=== PATIENT | female | born 1950 | race Caucasian/White ===

== ENCOUNTER 2016-08-02 18:44 | Inpatient (IN) | payer MEDICARE ==
[~2016-08-02] VITALS: Ht 157.5 cm; Wt 68.7 kg
--- NOTE | ~2016-08-02 | OR ---
PATIENT'S NAME: MATTY MARY [facility] AGE: 65 Y [address] ROOM: [address] [address] LOCATION: GPCU ADMIT DATE: 08/02/2016 OR/Procedure Report DISCHARGE DATE: FAMILY PHYSICIAN: Manny Caceres MD ATTENDING PHYSICIAN: Nav Tellez SURGEON: Parth Guadalupe MD [employer] ARCHITECT: Brennen Hagan PA-C. DATE OF PROCEDURE: 08/03/2016 PREOPERATIVE DIAGNOSIS: Perforated viscus with evidence of bowel obstruction. POSTOPERATIVE DIAGNOSIS: Perforated small bowel secondary to mesh erosion and bowel obstruction. PROCEDURE PERFORMED: 1. Exploratory laparotomy. 2. Enterolysis. 3. Small bowel resection with removal of infected mesh. 4. Appendectomy. ESTIMATED BLOOD LOSS: 150 mL. COMPLICATIONS: None. INDICATIONS: The patient is a 65-year-old female who presented with abdominal pain and evidence of bowel obstruction. She had a CT scan that revealed evidence of perforation, but also evidence of a bowel obstruction. She did not have free intraperitoneal air, but with worsening abdominal pain, we discussed laparotomy with this patient, the risks, benefits, and alternatives, and possible findings. Risks which included bleeding, infection, missed injury, injury to other viscera, potential ostomy formation. She understood the risks and elected to proceed. PROCEDURE IN DETAIL: The patient was taken to the operating room. She was placed supine. She was given IV sedation, subsequently intubated. Her abdomen was prepped with ChloraPrep and sterilely draped. A vertical midline incision was created inferior to the umbilicus. This was carried down through subcutaneous tissues using electrocautery. The linea alba was incised. Peritoneum was grasped, elevated and the abdominal cavity was entered. The incision was then opened along its entirety and Dipesh wound protector was then placed in the abdomen. There was fibrinous exudate on the bowel. The bowel was very distended consistent with the bowel obstruction. We were able to mobilize the small bowel without much difficulty. In the left lower quadrant, there was a loop of bowel. There appeared to be small bowel mesentery involvement with this severe inflammatory change. There was a firm PATIENT'S NAME: MATTY MARY [facility] AGE: 65 Y [address] ROOM: [facility] [place] [place], [place] [address] LOCATION: GPCU ADMIT DATE: 08/02/2016 OR/Procedure Report DISCHARGE DATE: FAMILY PHYSICIAN: Manny Caceres MD ATTENDING PHYSICIAN: Nav Tellez palpable area present. There was appeared to be necrotic tissue and a small amount of feculent appearing material was present. It was very difficult to tell what portion of the bowel this was, but again we felt there was small bowel involvement. By CT, it appears there could be colonic involvement. There were very poor planes. This area again appeared necrotic. We were able to slowly dissect the tissues and ultimately ended up identifying an area of a large amount of feculent material. This was a hole within the bowel that was created due to an inguinal hernia mesh erosion on the left. This appeared as though there was a plug. We tried to control the feculent matter with clamps. Again, this appeared to be small bowel. Ultimately, we were able to mobilize this loop of small bowel. This was also our area of obstruction as the bowel was somewhat torsed on itself and again with foreign body within the lumen due to the erosion of the mesh plug. A portion of the mesh plug was free of the surrounding tissues, however, some was very adherent to the pubis. We were able to dissect this and felt as though the majority of the mesh was removed using electrocautery. This was passed off as specimen. At this point in time, the bowel was resected proximal and distal to this necrotic area with the perforation and the mesentery between this was divided with the LigaSure device. Each ends of the bowel were stapled with a AYESHA stapler. The 2 ends of the bowel were placed in a [id number] fashion. Distal to our perforation, we had very decompressed bowel proximal to this. This was easily dilated. Once this portion of the bowel was resected, it was passed off as specimen. The 2 ends of the bowel were then placed in [id number] fashion. Enterotomies were created. AYESHA stapler was inserted and fired creating a common lumen. The enterotomy was closed with TA stapler. The anastomosis was palpated. There appeared to be good common lumen. It was leak tested and there was no evidence of leak. The operative field was further inspected. It was copiously irrigated. The small bowel mesentery was closed with interrupted 3-0 silk suture with the amount of inflammatory tissue present and concerns for difficulty in removing the appendix later. An appendectomy was also performed. The LigaSure was used to divide the mesoappendix. The appendix was then divided between clamps. This was then secured with 2-0 silk suture. This stump imbricated with 3-0 silk pursestring suture. The abdominal cavity again was irrigated with large volumes of fluid and was suctioned from the abdominal cavity. The left internal ring was again examined. We did not perform any further procedures in this area. The overlying mesh was not visible or palpable. A 15-Turkmen round drain was placed into the pelvis and brought out through a separate stab incision in the left abdominal wall. Copious amounts of irrigation again were used. The midline fascia was then reapproximated with 0 PDS suture. The subcutaneous tissues were copiously irrigated and the skin edges were reapproximated with brigitte. Sponge, needle and instrument counts were reported as correct. The patient was then extubated and sent to recovery in good condition. PATIENT'S NAME: MATTY MARY [facility] AGE: 65 Y [address] ROOM: [place] [address] [facility] AD[facility] DATE: 08/02/2016 OR/Procedure Report DISCHARGE DATE: FAMILY PHYSICIAN: Manny Caceres MD ATTENDING PHYSICIAN: Nav Tellez MD NANCY AMARO/modl /[id number] d: 08/04/16510 t: 08/05/16 0620, OPERATIVE SUMMARY
--- NOTE | ~2016-08-02 | HP ---
PATIENT'S NAME: MATTY [facility] AGE: 65 Y [address] ROOM: [facility] [place], [place] [address] LOCATION: GPCU ADMIT DATE: 08/02/2016 History & Physical DISCHARGE DATE: FAMILY PHYSICIAN: PHYSICIAN, UNKNOWN ATTENDING PHYSICIAN: Nav Tellez DATE OF SERVICE: 08/02/2016 CHIEF COMPLAINT: Small bowel obstruction with suspected perforation. HISTORY OF PRESENTING ILLNESS: This is a 65-year-old white female with previous history of bipolar disorder and previous hernia repair x2, [facility] and left-sided groin pain of a couple of days duration. She states she got progressively worse over the course of the day today and was unable to keep anything down. Interestingly, she reports her symptoms began a couple of days ago while she was moving a couch. She states she was trying to push it across the carpet, but it was stuck. She felt a painful popping sensation in her left hip and thigh. Subsequently, she began to feel increasing abdominal distress and nausea until she presented here today. On her arrival, x-ray did demonstrate the presence of a small bowel obstruction. It was requested to admit her to the floor. However, CT scan had not been done initially. Later, after completion of the CT scan, it was discovered that she had evidence for bowel perforation with gas in the soft tissues of the groin and thigh. Dr. Guadalupe, general surgeon, was consulted by telephone, and it was requested that I admit her to the hospital for definitive evaluation and management. On her arrival to the floor, she complains of diffuse abdominal pain and nausea. She also complains of dry mouth. She denies fever, chills, or sweats. She denies headaches, dizziness, or lightheadedness. No significant chest pain. No significant cough or shortness of breath. She has noticed some increased swelling in her legs recently. She denies numbness, tingling, or weakness. She has not fallen recently. ALLERGIES: NO KNOWN DRUG ALLERGIES. ILLNESSES: 1. Bipolar disorder with depression. 2. Previous suicide attempt with lithium overdose. 3. Chronic kidney disease, stage 3. PATIENT'S NAME: MATTY MARY [facility] AGE: 65 Y [address] ROOM: [id number] [place], [place] [address] [facility] ADMIT DATE: 08/02/2016 History & Physical DISCHARGE DATE: FAMILY PHYSICIAN: PHYSICIAN, UNKNOWN ATTENDING PHYSICIAN: Nav Tellez CURRENT MEDICATIONS: 1. Acetaminophen 650 mg p.o. q.6 hours p.r.n. pain. 2. Iron 324 mg daily. 3. Lorazepam 0.5 mg p.o. t.i.d. p.r.n. anxiety. 4. Metoprolol-XL 25 mg p.o. q.24 hours. 5. Multivitamin daily. 6. Pamelor 75 mg p.o. daily. 7. Vitamin B12, 25 mcg p.o. daily. FAMILY HISTORY: Negative for heart disease or stroke. SOCIAL HISTORY: She is and lives independently in [place]. She has a daughter, who lives in [place] and provides some social support. She has no significant history of alcohol or tobacco use. REVIEW OF SYSTEMS: As per HPI. All other organ systems reviewed and are negative. OBJECTIVE: VITAL SIGNS: Temperature 97.6, pulse 100, respirations 16, blood pressure 109/82, weight is 69.1 kg that is down from 79 in May 2012. GENERAL: She is disheveled, mildly ill appearing, but in no acute distress. SKIN: Supple, pink, warm, dry. No obvious rashes. HEENT: Otherwise, normocephalic. Sclerae nonicteric. Pupils are equal, round, and reactive to light and accommodation. Extraocular movements appear intact. Nasal turbinates normal in appearance. Oropharynx clear. Mucous membranes are pink and moist. Dentition is in poor repair. NECK: Supple. No masses. No adenopathy. No thyromegaly. No JVD. CHEST: Chest wall is symmetrical. HEART: Regular with occasional extrasystoles. LUNGS: Diminished at the bases. No crackles or wheezes are heard. ABDOMEN: Firm, protuberant, tympanitic. Bowel sounds are absent. She is diffusely tender with guarding throughout. No masses. There is prominence at the left inguinal region, but no palpable mass. No palpable crepitus. AND RECTAL: Shows normal female external genitalia. The Merrill catheter is in place without any complicating features. EXTREMITIES: Display 1 to 2+ pitting edema. No cyanosis. NEUROLOGIC: Mentation is slowed, but there are no focal deficits. LABORATORY AND X-RAY DATA: CBC showed a white blood cell count 4.5, hemoglobin is 9.1, hematocrit 28.4, and platelets 356. PATIENT'S NAME: MATTY MARY [facility] AGE: 65 Y [address] ROOM: [place] [address] LOCATION: GPCU ADMIT DATE: 08/02/2016 History & Physical DISCHARGE DATE: FAMILY PHYSICIAN: PHYSICIAN, UNKNOWN ATTENDING PHYSICIAN: Nav Tellez Chemistries reveal BUN and creatinine 101 and 3.2, respectively; sodium and potassium 139 and 4.2; chloride and CO2 are 108 and 18; calcium is 8.5; AST and ALT 55 and 58; bilirubin is 0.4; albumin is 2.1; glucose 99. Lactate was elevated at 2.8. Procalcitonin was significantly elevated at 50.97. A C- reactive protein was abnormal at greater than 37.5. KUB x-ray shows dilated small bowel loops with air-fluid levels. CT scan of the abdomen and pelvis confirms the presence of a distal small bowel obstruction. There is evidence for sigmoid perforation and gas in the left pelvis soft tissues extending into the thigh. ASSESSMENT AND PLAN: 1. Small-bowel obstruction. We will admit to inpatient care. We will observe bowel rest and provide supportive cares and clinical monitoring. They did attempt to place an NG in the ER, and we will plan to replace that once she is on the floor. Dr. Guadalupe, General Surgery, has been consulted and will also see the patient this evening. We will await his evaluation and recommendations, but likely no surgery tonight. 2. Bowel perforation with soft tissue gas in the left groin and thigh. Supportive care and bowel rest for now. She has already received broad- spectrum antibiotic therapy. We will await cultures and follow up on those when the results are known. We will await recommendations by General Surgery. 3. Systemic inflammatory response syndrome. She is not clearly septic. We will follow the lactate serially. We will provide supportive care and broad-spectrum antibiotic therapy as above. 4. Acute kidney injury with history of chronic kidney disease, stage 3. She appears prerenal. Continue with careful IV fluid hydration therapy and monitor. 5. Anemia, iron deficiency. We will plan to resume iron supplementation when it is feasible. 6. Bipolar disorder with depression and history of suicidal attempt. Currently stable. She appears to be lucid and capable of participating in decision making. I did discuss the case with her daughter, who is her legal guardian. The patient had expressed her desire to be do-not- resuscitate. However, her daughter requested to keep her full code. We will try to review this in more detail once the daughter has arrived to discuss this [id number]. 7. Deep venous thrombosis prophylaxis. We will use heparin subcu. PATIENT'S NAME: MATTY MARY [facility] AGE: 65 Y [address] ROOM: [place] [address] [facility] ADMIT DATE: 08/02/2016 History & Physical DISCHARGE DATE: FAMILY PHYSICIAN: PHYSICIAN, UNKNOWN ATTENDING PHYSICIAN: Nav Tellez MD AJS/maría /[id number] D: [id number] T: [id number] HISTORY & PHYSICAL
--- NOTE | ~2016-08-02 | CON ---
PATIENT'S NAME: PENNY MARY [facility] AGE: 65 Y [address] ROOM: [place] [address] LOCATION: GPCU ADMIT DATE: 08/02/2016 Consultation DISCHARGE DATE: FAMILY PHYSICIAN: PHYSICIAN, UNKNOWN ATTENDING PHYSICIAN: Nav Tellez CHIEF COMPLAINT: Abdominal pain. HISTORY OF PRESENT ILLNESS: The patient is a 65-year-old female, who said on last week she began feeling ill, said she was lifting a couch, had acute onset of pain and bloating. Said she developed left groin pain not long after this. She said she felt more and more swollen. Because of this, was seen in the clinic on Monday. She thought her bloating was secondary to a change in her psychiatric medications. She was seen again in the clinic in [place] today, where she was found increasing abdominal distention. She also has been having nausea and vomiting. She had plain films of her abdomen that were performed that were concerning for bowel obstruction. Because of this, she was sent to [facility]. She was admitted by the hospitalist. Her last bowel movement was 2 days ago. Cannot recall when she last passed flatus. She has no history of bowel obstruction. She did have a hysterectomy, this was done vaginally, also has had an open as well as laparoscopic right inguinal hernia performed. She has not had any fevers or chills. She said her pain is slightly worse when she walks, currently is describing left groin pain and right-sided abdominal pain. She has never had pain similar to this in the past. CURRENT ILLNESSES: Depression. CURRENT MEDICATIONS: 1. Lorazepam. 2. Metoprolol. 3. Multivitamin. 4. Nortriptyline. PREVIOUS SURGERIES: 1. Open left inguinal hernia. 2. Open right inguinal hernia. 3. Recurrent laparoscopic right inguinal hernia. 4. Vaginal hysterectomy. 5. Tonsillectomy. SOCIAL HISTORY: She is a nonsmoker and nondrinker. PATIENT'S NAME: PENNY MARY [facility] AGE: 65 Y [address] ROOM: [place] [address] LOCATION: GPCU ADMIT DATE: 08/02/2016 Consultation DISCHARGE DATE: FAMILY PHYSICIAN: PHYSICIAN, UNKNOWN ATTENDING PHYSICIAN: Nav Tellez FAMILY HISTORY: She had a mother with breast cancer. Father with liver cancer. REVIEW OF SYSTEMS: She denies headache or vision changes. Denies chest pain. No shortness of breath. She has had obstipation and constipation as well as nausea and vomiting. Denies any hematuria. Does have some pain on urination. PHYSICAL EXAMINATION: GENERAL: Pleasant and cooperative 65-year-old female. HEENT: Head is normocephalic, atraumatic. Eyes are anicteric. NECK: Without lymphadenopathy. HEART: Regular rate and rhythm. LUNGS: Clear to auscultation bilaterally. She is slightly tachypneic. ABDOMEN: Distended. Bowel sounds are absent. There is moderate tenderness to palpation. No rebound or guarding. MUSCULOSKELETAL: On examination of her left groin, there is some tenderness to palpation. No crepitans. No fluctuance. There is no overlying erythema. No visible injury. Range of motion is intact. She does have trace lower extremity edema. IMAGING: CT scan was reviewed, which reveals possible bowel obstruction but also what reveals to be a perforation within the sigmoid colon. ASSESSMENT: 1. Perforated viscus. 2. Possible bowel obstruction. PLAN: Discussed the findings with Penny as well as her daughter. Her bowels quite dilated. She has the air present. No abscess. Her white blood cell count was normal. She is not having fevers. I discussed the options of conservative measures with antibiotics versus exploration, possible ostomy, release of bowel obstruction if needed. We discussed potential etiologies of this. We discussed long-term complications or even short-term complications of nonsurgical management. I discussed the risks, benefits, and alternatives of surgery as well. Ultimately, she would like to try conservative management. We will begin antibiotics; however, I am concerned she is going to need exploration at some point in time. We discussed delay in intervention. We also discussed potential for improvement with antibiotics alone. I really feel this likely happened more than four days ago. The volume of air is quite peculiar but she currently demonstrates no sign of necrotizing infection or evidence of overwhelming sepsis. PATIENT'S NAME: PENNY MARY [facility] AGE: 65 Y [address] ROOM: [place] [address] LOCATION: GPCU ADMIT DATE: 08/02/2016 Consultation DISCHARGE DATE: FAMILY PHYSICIAN: PHYSICIAN, AMISH ATTENDING PHYSICIAN: Nav Tellez DANIELLE J MD NANCY KATE/danyl /[id number] d: 08/03/16440 t: 08/05/16617, CONSULTATION REPORT
--- NOTE | ~2016-08-02 | ER ---
PATIENT'S NAME: MATTY MARY [facility] AGE: 65 Y [address] ROOM: [id number] [place], [place] [address] LOCATION: GPCU ADMIT DATE: 08/02/2016 ER/Outpatient Report DISCHARGE DATE: FAMILY PHYSICIAN: PHYSICIAN, UNKNOWN ATTENDING PHYSICIAN: Nav Tellez Admission date and time are documented in the medical record. I saw the patient at 1900 hours. CHIEF COMPLAINT: Abdominal pain, distention, nausea, vomiting, and back pain. HISTORY OF PRESENT ILLNESS: The patient is a 65-year-old female who was flown in [facility] from [place], [place] for evaluation. Apparently, the patient has had abdominal pain this past Monday. The pain has been getting worse. Her abdomen is becoming distended. They did a KUB that showed they thought possibly was a small bowel obstruction then transferred the patient here. Dr. Dempsey, hospitalist did accept the patient. Dr. Dempsey directed the patient to the emergency department and asked me to proceed with a CT scan of the abdomen and pelvis. The patient is awake, responsive. She is lethargic, drowsy. Apparently, her blood pressure dropped systolic to 90, she has had about 2 L of normal saline and fluids and her blood pressure systolic was 110. She had acute renal failure with a creatinine 4.0 and BUN about 100+. Her GFR was 20. NG was placed and Merrill catheter was placed in [place]. Again, on arrival, the patient's blood pressure was 113/70 with a pulse of 108, respirations 26, temperature 98.9, tympanic, and she was satting 93% on room air. She was awake and responsive. She had diffuse abdominal pain. She was distended tympanic to percussion with guarding. No real true rigidity as yet. She had some low back pain. No chest pain or shortness of breath. She had some nausea, had not vomited here, but had vomited previously. Passing just a small amount of gas really infrequently. No diarrhea. No bowel movements. No headache, eyes, ears, nose, throat, or neck pain. A little lightheaded, dizzy, but no syncope or near syncope. No fall or trauma. No joint or muscle swelling, redness, or pain. No skin eruptions or rash. She does have a history of bipolar disorder with depression and anxiety. She also has a history of tardive dyskinesia. No endocrine problems or neuro changes. HOME MEDICATIONS: See attached medication list. ALLERGIES: NONE. SOCIAL HISTORY: PATIENT'S NAME: MATTY MARY [facility] AGE: 65 Y [address] ROOM: [place] [address] LOCATION: GPCU ADMIT DATE: 08/02/2016 ER/Outpatient Report DISCHARGE DATE: FAMILY PHYSICIAN: PHYSICIAN, UNKNOWN ATTENDING PHYSICIAN: Nav Tellez Nonsmoker and nondrinker. SIGNIFICANT PAST MEDICAL HISTORY: Bipolar disorder, depression, anxiety, tardive dyskinesia, and acute renal failure. OPERATIONS: Central line placement for previous acute renal failure, vaginal hysterectomy, and bilateral inguinal herniorrhaphies. REVIEW OF SYSTEMS: All systems reviewed by me are negative with the exception of those discussed in the history of present illness. PHYSICAL EXAMINATION: VITAL SIGNS: Temperature 98.9, tympanic, pulse 108, respirations 26, blood pressure 113/70, and O2 sat on room air is 93%. HEAD: Normocephalic. EYES: Extraocular muscles intact. PERRL. EARS, NOSE, THROAT: Clear. Mucous membranes moist. NECK: No nuchal rigidity. No thyromegaly or cervical adenopathy. SPINE: Negative. LUNGS: Clear. No rales, rhonchi, or wheezes. HEART: Regular. Pulses are palpable. No chest wall or ribcage pain to palpation. ABDOMEN: Tympanic to percussion, distended, no bowel tones. Tender diffusely. Some mild guarding. No palpable masses. No organomegaly. No CVA tenderness. EXTREMITIES: Without peripheral edema, cyanosis, or deformity. NEUROVASCULAR: Intact. SKIN: Clear. No skin eruptions or rash. LABORATORY DATA: Chest x-ray showed no acute infiltrate. KUB showed distended small bowel. We will review all plain films with the radiologist. Laboratory: CMS was normal except for a low CO2 content of 18, elevated BUN of 101, elevated creatinine of 3.2, low GFR of 15, AST was 55, amylase was elevated at 133, lipase was normal at 50, CPK was elevated at 412, CK-MB was elevated at 9.4, troponin was normal less than 0.04, CRP was elevated at 37.5, free T4 and TSH were normal. Procalcitonin was 50.97. Lactate was 2.8. Blood cultures x2 drawn, results pending. Urinalysis was obtained and urine culture is pending. White count was 4500, differential of 26 segs, 44 bands, 22 lymphs, 7 monos, and 2 metamyelocytes. Urine showed negative whites, 10 to 20 reds, 2 to 5 epithelial cells, moderate bacteria, 1+ mucus, and 2 to 5 hyaline cast. Again, culture pending. CT scan of the abdomen and pelvis without IV contrast PATIENT'S NAME: MATTY MARY [facility] AGE: 65 Y [address] ROOM: [place] [address] LOCATION: GPCU ADMIT DATE: 08/02/2016 ER/Outpatient Report DISCHARGE DATE: FAMILY PHYSICIAN: PHYSICIAN, UNKNOWN ATTENDING PHYSICIAN: Nav Tellez showed small bowel obstruction at the terminal ilium. There was a possibility of a sigmoid colon perforation. There was some air dissecting along the left pelvic sidewall into the muscle and fascial planes of the left thigh. There was no intraabdominal air. There was no intraabdominal fluid or abscess collection. The patient did have numerous sigmoid colon diverticuli. EMERGENCY DEPARTMENT COURSE: I did start the patient on IV normal saline and fluids. She has got a total of 3000 mL and we will place her at 100 mL an hour. She did have an NG tube down, but it was coiled just above the stump; so, this was removed. She does have a Merrill catheter in place. I did initially discuss this patient with Dr. Tellez, hospitalist. Dr. Tellez was taken over for Dr. Dempsey who did accept this patient. We will admit the patient to PCU telemetry. I also discussed this patient with Dr. Guadalupe, General Surgeon. Dr. Guadalupe is going to see the patient here in the hospital. He did suggest we start her on Zosyn 4.5 g IV and Flagyl 500 mg IV in anticipation this most likely is a perforated diverticuli of the sigmoid colon. IMPRESSION: 1. Abdominal pain and distention with distal small bowel obstruction and possibility of a perforated midupper sigmoid colon diverticuli. There was no evidence of abscess, free fluid, or free air. There is some air dissecting along the left pelvic sidewall into the muscle and fascial planes of the proximal left thigh. 2. Acute renal failure with BUN of 101, creatinine of 3.2, and low GFR of 15. 3. Transient hypotension. 4. Leukopenia with bandemia. This most likely is related to her small-bowel obstruction, possible perforated sigmoid colon. Blood cultures x2 drawn, results pending. Need to keep in mind the possibility of sepsis in this patient. The patient's CRP was elevated at 37.50, procalcitonin was elevated at 50.97, her lactate was elevated at 2.8. 5. Anemia with a hemoglobin of 9.1 and hematocrit of 28.4. 6. History of bipolar disorder with anxiety, depression, and tardive dyskinesia. PLAN: Again, the patient was hydrated, 3 L of normal saline fluids was given. She was started on Zosyn and Flagyl IV. The patient will be admitted by Dr. Tellez to PCU telemetry for further evaluation and treatment. Dr. Guadalupe, General Surgeon, is going to see the patient. I did discuss my findings with the patient, she understands. Accumulated critical care time was 40 minutes. PATIENT'S NAME: MATTY MARY [facility] AGE: 65 Y [address] ROOM: [address] [address] [facility] AD[facility] DATE: 08/02/2016 ER/Outpatient Report DISCHARGE DATE: FAMILY PHYSICIAN: PHYSICIAN, UNKNOWN ATTENDING PHYSICIAN: Nav Tellez MD JERO REYES/modl /[id number] d: 08/03/16 0446 t: 08/03/16 1708, OUTPATIENT REPORT
--- NOTE | ~2016-08-02 | DS ---
PATIENT'S NAME: MATTY MARY [facility] AGE: 65 Y [address] ROOM: [address] [address] LOCATION: GPCU ADMIT DATE: 08/02/2016 Discharge Summary DISCHARGE DATE: 08/08/2016 FAMILY PHYSICIAN: Manny Caceres MD ATTENDING PHYSICIAN: Nav Tellez DISCHARGE SUMMARY/TRANSFER SUMMARY. TIME OF DISCHARGE: 11 p.m. PRIMARY DISCHARGE/TRANSFER DIAGNOSES: 1. Left inguinal area abscess/infection down into the musculature of the anterior left thigh, concerning for necrotizing fascitis. 2. Perforated small bowel secondary to mesh erosion and bowel obstruction, status post exploratory laparotomy and enterolysis and small bowel resection with removal of the infected mesh and also appendectomy on August 03, 2016. 3. Hypernatremia. 4. History of supraventricular tachycardia. 5. Acute blood loss anemia. 6. Acute kidney injury on chronic kidney disease. 7. Acute encephalopathy. PAST MEDICAL HISTORY: 1. Bipolar disorder with depression. 2. Previous suicide attempt with lithium overdose. 3. CKD stage 3. TRANSFER MEDICATIONS: 1. MiraLAX 17 g p.o. b.i.d. 2. Albuterol 2.5 mg q.4 hours inhalation p.r.n. for shortness of breath or wheezing. 3. Dilaudid IV 0.2 to 0.6 mg q.2 hours p.r.n. for pain. 4. IV meropenem 500 mg b.i.d. 5. Dextrose 5% water running at 200 mL/h. 6. Lopressor 5 mg q.6 hours IV. 7. Subcutaneous Lovenox 30 mg daily. 8. Nortriptyline 75 mg p.o. daily. 9. Protonix 40 mg p.o. daily. 10. IV Protonix 40 mg daily. 11. IV Flagyl 500 mg q.8 hours. 12. Zofran IV 4 mg q.4 hours p.r.n. for nausea or vomiting. FOLLOWUP PLAN: The patient will be transferred right now on July 09, 2016, to [facility], and accepting physician over there is PATIENT'S NAME: MATTY MARY [facility] AGE: 65 Y [address] ROOM: [address] [address] LOCATION: GPCU ADMIT DATE: 08/02/2016 Discharge Summary DISCHARGE DATE: 08/08/2016 FAMILY PHYSICIAN: Manny Caceres MD ATTENDING PHYSICIAN: Nav Tellez the trauma surgeon, Dr. Awad. The reason for the transfer is concerning for left lower extremity necrotizing fascitis. I have already spoken to Dr. Awad about the case in detail, and Dr. Awad will be the accepting physician. The patient will be going there by helicopter and will be admitted to the ICU over there. The reason for the transfer is given that our trauma surgeon, Dr. Zepeda, evaluated the CT scan and also went over the plan with me in person, given that the patient will require urgent surgical exploration and debridement, and the patient may require more down the road, therefore, it is the best for the patient to be transferred to [facility] for further care and also they have ID contamination consultant in house at all times. The patient and the patient's daughter both agreed after I spoke to them personally, in person to the patient, and over the phone to her daughter, her name is Jasmin. INVESTIGATION DURING THE HOSPITALIZATION: Chest x-ray on August 02, 2016, showed an NG tube is present with tip directed back on the back on itself and present at the level of the thoracic inlet. This needs to be removed and repositioned to be within the stomach. Linear bibasilar atelectasis/infiltrate is present. Upper lungs are clear. No pleural effusion or pneumothorax is identified. KUB on August 02, 2016, showed dilated air and fluid filled small bowel is present down to the right lower quadrant. Worrisome for a distal small bowel obstruction. Surgical brigitte are present overlying the right lower quadrant. Streaky air is present in the region of the left adductor muscle and proximal left thigh. KUB again on August 02, 2016, at the later time showed NG tube is present with tip at the proximal stomach. Dilated distended loops of proximal and mid small bowel are again identified. CT scan of the abdomen and pelvis on August 02, 2016 without contrast showed suspected bowel perforation involving the mid to upper sigmoid colon with air dissecting along the left pelvic sidewall and into the muscle and fascia planes of the proximal left thigh. Suspected distal small bowel obstruction. Atrophic left kidney with calcification. Sigmoid colon diverticula are present. Chest x-ray on August 04, 2016, showed an NG tube is in the satisfactory position. Chest x-ray on August 07, 2016, showed bibasilar opacities favor atelectasis or pneumonia. CT of the abdomen and pelvis with contrast on August 08, 2016, shows status post laparotomy and drainage of the left lower quadrant/left pelvic abscess. The PATIENT'S NAME: MATTY MARY [facility] AGE: 65 Y [address] ROOM: [address] [place] [id number] LOCATION: GPCU ADMIT DATE: 08/02/2016 Discharge Summary DISCHARGE DATE: 08/08/2016 FAMILY PHYSICIAN: Manny Caceres MD ATTENDING PHYSICIAN: Nav Tellez intraperitoneal abscess is resolved. Persisting abscess/infection, ill- defined tracking from the left inguinal region, down into the musculature of the anterior left thigh, ileus versus partial small bowel obstruction. MICROBIOLOGY DATA: Blood culture 2 sets on August 02, 2016 came back negative. Urine culture also came back negative on August 02, 2016. LABORATORY RATA: Blood work: White blood cell on admission 4.5, on the day of transfer 25.6; hemoglobin on admission 9.1, hematocrit 28.4, on transfer hemoglobin 7.9, hematocrit 23.9; platelet 356 on admission and 198 on transfer. Glucose 99, BUN 101, creatinine 3.2, sodium 139, potassium 4.2, chloride 108, CO2 of 18, calcium 8.5 on admission; and on transfer, glucose 129, BUN 45, creatinine 1.4, sodium 148, potassium 3.5, chloride 118, CO2 of 23, calcium 8.5. On admission, total protein was 6.5, albumin 2.1, AST 55, ALT 58, alkaline phosphatase 63, total bilirubin 0.4; and on transfer, albumin 2.2, phosphorus 2.1, magnesium 1.8. GFR on admission was 15, on transfer 38. INR 0.98 on admission. Urinalysis on admission, negative for UTI, and on the day of transfer again still negative for UTI. Amylase 133 on admission, lipase 50 on admission. CK-MB 9.4 on admission. Free T4 1.1 on admission. TSH 0.44 on admission. Procalcitonin 50.97 on admission. CONSULTANTS INVOLVING CARE: 1. On-call trauma surgeon, Dr. Zepeda. 2. General surgeon, Dr. Parth Guadalupe. 3. Hospitalist team. ADMISSION HISTORY AND HOSPITAL COURSE: For the complete history and physical, refer to history and physical dictated by Dr. Tellez on admission. In summary, this is a 65-year-old female coming here with abdominal pain and left groin pain, and imaging study performed showed she has perforated small bowel secondary to left inguinal mesh erosion and small bowel obstruction. On August 03, 2016, the patient underwent exploratory laparotomy with enterolysis and small bowel resection with removal of the infected mesh and also appendectomy on August 03, 2016. Later on, patient spiked leukocytosis and has worsening pain of the left groin and left thigh and had CT abd/pelv today on 08/08/16 and concerning for necrotizing fasciitis. 1. Regarding her left inguinal groin abscess with muscle involvement concerning for necrotizing fascitis: The case was reviewed by our trauma surgeon, Dr. Zepeda, who recommended to transfer the patient to [facility] for further care given that the patient will require probably more than one surgery down the road, and it is better for her to be in [facility] with all the specialists available including Infectious Disease in the house. I spoke to the patient and the patient's daughter, and both agreed to transfer the patient by air to [facility]. I have already PATIENT'S NAME: MATTY MARY [facility] AGE: 65 Y [address] ROOM: [id number] [place] [id number] LOCATION: GPCU ADMIT DATE: 08/02/2016 Discharge Summary DISCHARGE DATE: 08/08/2016 FAMILY PHYSICIAN: Manny Caceres MD ATTENDING PHYSICIAN: Nav Tellez spoken to the accepting physician, who is a trauma surgeon, Dr. Awad, over there at [facility], and the patient will be transferred over there to ICU for further care. The patient is hemodynamically stable. We will continue IV meropenem and IV Flagyl. The patient's blood pressure is stable; however, heart rate is 120 sinus tachycardia secondary to the severe sepsis from the left groin and left thigh infection. Her mentation is alert and oriented x3. She denies any other problems besides the pain in her left groin and left thigh. 2. Regarding her perforated small bowel secondary to mesh erosion and bowel obstruction: The patient underwent exploratory laparotomy and enterolysis and also small bowel resection with removal of the infected mesh and appendectomy on August 03, 2016. We will continue the antibiotics as mentioned before. The patient's NG tube was already removed. Further care will be taken care at [facility]. The surgical wound looks clean in the abdomen. The patient denies any abdominal pain at the moment. 3. Regarding her hypernatremia: We will continue the dextrose 5% water. This is secondary to the decreased free water intake. Further care will be treated over there at [facility]. 4. Regarding her history of supraventricular tachycardia: Rate controlled with IV Lopressor. We will continue that. Currently sinus tachycardia. Asymptomatic given that blood pressure is stable. 5. Regarding her acute blood loss anemia: The patient is asymptomatic. Further care will be determined at [facility] due to the urgency of the transfer by helicopter over there right now. 6. Regarding acute kidney injury on chronic kidney disease stage 3: The patient has been getting IV fluids, and kidney function has improved back to the baseline stage 3 with GFR was 38 on the day of transfer and creatinine 1.4. We will continue the current IV fluids. 7. Regarding her acute encephalopathy: Already resolved, likely from the perforated small bowel from the infected mesh. We will continue the current antibiotics. 8. Regarding her depression: Continue the home antidepressive medications. Currently, the patient is not suicidal. PATIENT'S NAME: MATTY MARY [facility] AGE: 65 Y [address] ROOM: [place] [address] LOCATION: GPCU ADMIT DATE: 08/02/2016 Discharge Summary DISCHARGE DATE: 08/08/2016 FAMILY PHYSICIAN: Manny Caceres MD ATTENDING PHYSICIAN: Nav Tellez Total time spent in care 50 minutes including making all the phones calls to coordinate the transfer and updating patient and her daughter about plan of transfer. This time also included addressing all questions and concerns patient and her daughter had and I answered all of them to their satisfaction. SIMONE MARY MD CC/maría /[id number] d: 08/09/16 0157 t: 08/09/16 0340, DISCHARGE SUMMARY
[2016-08-02 19:41] LABS: HEMATOCRIT 28.4 % (33.0-46.0); HEMOGLOBIN 9.1 g/dL (10.0-15.0); MCH 29.8 pg (27.0-34.0); MCV 93.1 fl (83.0-98.0); MPV 10.7 fl (9.4-12.4); PLATELET COUNT 356 K/uL (150-450); RBC 3.05 M/uL (3.50-5.50); RDW-CV 13.6 % (11.9-14.6); WBC 4.5 K/uL (4.0-11.0)
[2016-08-02 19:51] LABS: INR - (THERAPEUTIC) 0.98 (0.92-1.07); PROTIME 10.3 SECONDS (9.8-11.4); PTT 43 SECONDS (25-32)
[2016-08-02 20:03] LABS: ALBUMIN 2.1 gm/dL (3.5-5.0); ALK PHOS 63 IU/L (33-138); ALT 58 IU/L (12-78); ANION GAP 17.2 (10.0-19.0); AST 55 IU/L (10-40); CALCIUM 8.5 mg/dL (8.5-10.5); CHLORIDE 108 mMol/L (96-110); CO2 18 mMol/L (22-32); CPK 412 IU/L (21-215); CREATININE 3.2 mg/dL (0.5-1.1); ESTIMATED GFR (MDRD EQUATION) 15; POTASSIUM 4.2 mMol/L (3.7-5.1); SODIUM 139 mMol/L (135-145); TOTAL BILIRUBIN 0.4 mg/dL (0.0-1.5); TOTAL PROTEIN 6.5 g/dL (6.0-8.4)
[2016-08-02 20:21] LABS: BLOOD UREA NITROGEN 101 mg/dL (6-24)
[2016-08-02 21:03] LABS: BILIRUBIN URINE NEGATIVE (NEGATIVE); BLOOD URINE 250 /UL (NEGATIVE); COLOR URINE YELLOW (YELLOW); GLUCOSE URINE NEGATIVE (NEGATIVE); KETONE URINE NEGATIVE (NEGATIVE); LEUKOCYTES URINE NEGATIVE /UL (NEGATIVE); NITRITE URINE NEGATIVE (NEGATIVE); PROTEIN URINE 30 mg/dL (NEGATIVE); SPEC GRAVITY URINE 1.015 (1.003-1.035); TURBIDITY URINE CLEAR (CLEAR); UROBILINOGEN URINE NORMAL (NORMAL)
[2016-08-02 21:15] LABS: BACTERIA URINE MODERATE (NEGATIVE); MUCUS URINE 1+ (NEGATIVE); WBC URINE NEGATIVE #/HPF (NEGATIVE)
[2016-08-02 21:50] LABS: ABSOLUTE NEUTROPHIL CT (ANC) 3.2 K/uL (1.8-7.8); BANDED NEUTROPHILS % 44 %; LYMPHOCYTE % 22 %; MONOCYTE # 0.3 K/uL (0.0-1.0); SEGMENTED NEUTROPHIL # 1.2 K/uL (1.8-7.8); SEGMENTED NEUTROPHIL % 26 %
[2016-08-02] MEDS ORDERED: MULTI VITAMIN1 EACH PO (22:28)
[2016-08-02] MEDS ORDERED: ATIVAN 0.5MG0.5 MG PO (22:28)
[2016-08-02] MEDS ORDERED: TOPROL XL25 MG PO (22:28)
[2016-08-02] MEDS ORDERED: PAMELOR75 MG PO (22:29)
[2016-08-02] MEDS ORDERED: VITAMIN B-122500 MCG SL (22:32)
[2016-08-02] MEDS ORDERED: TYLENOL325 MG PO (22:33)
[2016-08-02] MEDS ORDERED: FERGON325 M1 PO (22:35)
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
[2016-08-03 03:41] LABS: HEMATOCRIT 32.1 % (33.0-46.0); HEMOGLOBIN 10.5 g/dL (10.0-15.0); MCH 30.7 pg (27.0-34.0); MCHC 32.7 gm/dL (32.0-36.5); MCV 93.9 fl (83.0-98.0); MPV 10.7 fl (9.4-12.4); PLATELET COUNT 323 K/uL (150-450); RBC 3.42 M/uL (3.50-5.50); RDW-CV 13.7 % (11.9-14.6); WBC 4.8 K/uL (4.0-11.0)
--- NOTE | 2016-08-03 04:01 | NUR ---
Patient A/Ox3. VSS on RA. Repo q2hrs. NG in place 500ml out, Abdomen softer but still distented. Lungs clear/diminished. Merrill 600mls out. IV Lt hand NS and antibotics. IV RT AC saline locked. Edema +2-3 to bilateral lower extremities. NPO except ice chips/meds. Does complain of back pain, resolves with repostioning. Labs this am. Continue NG tube, will re-evaulate if needing surgery.
[2016-08-03 04:05] LABS: ANION GAP 14.3 (10.0-19.0); CALCIUM 8.5 mg/dL (8.5-10.5); CREATININE 2.9 mg/dL (0.5-1.1); PHOSPHORUS 5.9 mg/dL (2.5-4.9); POTASSIUM 4.3 mMol/L (3.7-5.1)
[2016-08-03 04:07] LABS: ALBUMIN 1.9 gm/dL (3.5-5.0)
[2016-08-03 05:06] LABS: ABSOLUTE NEUTROPHIL CT (ANC) 4.1 K/uL (1.8-7.8); BANDED NEUTROPHIL # 2.2 K/uL (0.0-0.1); BANDED NEUTROPHILS % 46 %; LYMPHOCYTE # 0.7 K/uL (0.8-4.0); LYMPHOCYTE % 14 %; SEGMENTED NEUTROPHIL # 1.9 K/uL (1.8-7.8); SEGMENTED NEUTROPHIL % 39 %
[2016-08-03] MEDS ORDERED: SENNA-DOCUSATE1 EACH PO (15:18)
--- NOTE | 2016-08-03 17:12 | NUR ---
CONFUSED. FROM SX REQUIRING 10L MASK. TACHTY 120'S. RR 30'S-40'S. DILAUDID DAY CARE HOME MOTHER. HTN OR 500ML BOLUS. SEPSIS?? ALBUMIN IN OR. INC TO ABD CDI CHANGE PRN AND OFF POD #3. FAY TO SITE INTACT. JOSE ANTONIO SALCEDO. ANALISA LIS. NS @100. FAMILY AT BEDSIDE
[2016-08-03 18:44] LABS: BICARBONATE 16.7 mmol/L (18.0-23.0); PCO2 34 mmHg (35-45); PO2 88 mmHg (80-90)
[2016-08-03 22:28] LABS: BICARBONATE 15.6 mmol/L (18.0-23.0); PCO2 34 mmHg (35-45); PO2 105 mmHg (80-90)
--- NOTE | 2016-08-04 04:11 | NUR ---
Patient A/Ox3 can be forgetful. BP 1teens, HR 1teen-130, Resp 15-25, 95% on 2L NC. MD aware of heart rates. Lungs clear/diminished. Bowel sounds present, no BM this shift. Abdominal incision CDI, FAY to LT lower quadrant, 60mls out this shift. Merrill 1225ml out. IV to RT AC and LT hand. Iv antibotics, NS at 50mls/hr. NG to low continuous suction, no output. No nausea, vomiting, or abdominal pain. Dilaudid UNDERGROUND REPAIRER turned off, Demand only 0.2mg/10min lockout. Patient did have respitory distress when brought up from PACU. 15L non-rebreather, resp rate 30-40, Heart rates 130's. IV fluids decreased to 50, IV lasix 40mg given, ABG's, Cpap x1hr, and turned off continuous rate on UNDERGROUND REPAIRER. Patient slowly improved though out the night. Chest Xray this am.
[2016-08-04 05:08] LABS: HEMATOCRIT 28.6 % (33.0-46.0); HEMOGLOBIN 9.4 g/dL (10.0-15.0); MCH 30.4 pg (27.0-34.0); MCHC 32.9 gm/dL (32.0-36.5); MCV 92.6 fl (83.0-98.0); MPV 10.4 fl (9.4-12.4); RBC 3.09 M/uL (3.50-5.50); WBC 11.4 K/uL (4.0-11.0)
[2016-08-04 05:10] LABS: PLATELET COUNT 248 K/uL (150-450)
[2016-08-04 05:20] LABS: ALBUMIN 2.4 gm/dL (3.5-5.0); CALCIUM 8.2 mg/dL (8.5-10.5); CREATININE 2.9 mg/dL (0.5-1.1); POTASSIUM 3.7 mMol/L (3.7-5.1)
[2016-08-04 05:22] LABS: ANION GAP 18.7 (10.0-19.0); MAGNESIUM 2.9 mg/dL (1.8-2.6)
[2016-08-04 06:14] LABS: ABSOLUTE NEUTROPHIL CT (ANC) 9.7 K/uL (1.8-7.8); BANDED NEUTROPHIL # 5.1 K/uL (0.0-0.1); BANDED NEUTROPHILS % 45 %; LYMPHOCYTE # 0.7 K/uL (0.8-4.0); LYMPHOCYTE % 6 %; MONOCYTE # 0.7 K/uL (0.0-1.0); SEGMENTED NEUTROPHIL # 4.6 K/uL (1.8-7.8); SEGMENTED NEUTROPHIL % 40 %
--- NOTE | 2016-08-04 13:13 | NUR ---
Introduced myself to pt and her daughter Jasmin who also is he dane. She states she is better today but still a little confused. She states she has her own apartment in [place] and still driving and does well at her apartment. She has her aunt set up her meds and it is in one of the electric pill dispensers and pt is very compliant with her meds. Jasmin did say the last few months she has been in and out of [facility] [facility] unit for her bipolar. I did explain will follow and pt may need swingbed or skilled or c upon dc. 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
--- NOTE | 2016-08-04 17:13 | NUR ---
Significant Event: SINUS TACH THIS SHIFT WITH HR'S 130S THIS AM; PO CARDIZEM X1 PER NG TUBE WITHOUT CHANGE. EKG DONE. ORDER FOR IV LOPRESSOR AND HR'S 110S-120S THROUGHOUT REST OF SHIFT. SBPS HI 90S-120S. AFEBRILE. PRESIDENT PRACTICING UROLOGIST RESTARTED THIS AFTERNOON PER MD ORDERS WITH DEMAND ONLY, BUT HAS NOT HAD ANY DILAUDID THIS SHIFT. IS DROWSY AND AWAKENS EASILY TO VERBAL COMMANDS. FORGETFUL AND DISORIENTED AT TIMES, DID SAY THAT SHE WAS HALLUCINATING FOR A SHORT TIME THIS AFTERNOON, SEEING PEOPLE IN HER ROOM THAT WEREN'T THERE; NO AGITATION OR RESTLESSNESS. O2 CONTINUES AT 3L/NC. ETCO2 LOW 20S. BRADY WITH 500 MLS UOP. ABSENT BS. ABDOMINAL MIDLINE DRESSING REMAINS WITH OLD, MARKED BLOODY DRAINAGE. FAY WITH 25 MLS SEROSANGUINOUS DRAINAGE. REPOSITIONED Q2H. IV TYLENOL PER MD ORDERS. ALBUMIN X2 DOSES THIS SHIFT. NG REMAINS TO CONTINOUS SX WITH 150 MLS BROWN/BILE OUTPUT. TAKES A FEW ICE CHIPS. IV ABX CONTINUE AND IVFS CHANGED. DAUGHTER AT BEDSIDE AND SUPPORTIVE, UPDATED ON POC. Follow up: CONTINUE PLAN OF CARE.
[2016-08-04 19:39] LABS: CALCIUM 8.3 mg/dL (8.5-10.5); CREATININE 3.5 mg/dL (0.5-1.1); POTASSIUM 3.1 mMol/L (3.7-5.1)
[2016-08-04 19:48] LABS: ANION GAP 15.1 (10.0-19.0)
--- NOTE | 2016-08-05 04:59 | NUR ---
Signficant events: Pt A/Ox3, forgetful at times. VSS, SBP 100-110's, HR 70-110's. On 2-3L/NC. Afebrile. Turned side to side throughout night. NG tube to suction, minimal output. FAY drain to abdomen with 20mL out. Merrill with 1150 out. Dilaudid INTENSIVE CARE NURSE on demand only, 0.4mg total delivered. IV tylenol continues. IV potassium and 5% albumin given this shift. IV was started to L) foot by flight RN's d/t inability to start anything else. NPO with ice chips. D5 with sodium bicarb increased to 200cc/hr. Abdomen incision covered, small shadow drainage. Pt slept on and off throughout shift. Cooperative with cares.
[2016-08-05 05:02] LABS: MCV 89.9 fl (83.0-98.0); MPV 10.5 fl (9.4-12.4); RBC 2.48 M/uL (3.50-5.50); RDW-CV 14.1 % (11.9-14.6)
[2016-08-05 05:04] LABS: HEMATOCRIT 22.3 % (33.0-46.0); HEMOGLOBIN 7.4 g/dL (10.0-15.0); MCH 29.8 pg (27.0-34.0); MCHC 33.2 gm/dL (32.0-36.5); PLATELET COUNT 174 K/uL (150-450)
[2016-08-05 05:20] LABS: ALBUMIN 2.8 gm/dL (3.5-5.0); CALCIUM 8.1 mg/dL (8.5-10.5); CREATININE 3.3 mg/dL (0.5-1.1); PHOSPHORUS 3.7 mg/dL (2.5-4.9); POTASSIUM 3.4 mMol/L (3.7-5.1)
[2016-08-05 05:21] LABS: ANION GAP 12.4 (10.0-19.0); MAGNESIUM 3.1 mg/dL (1.8-2.6)
[2016-08-05 06:15] LABS: ABSOLUTE NEUTROPHIL CT (ANC) 7.8 K/uL (1.8-7.8); BANDED NEUTROPHIL # 2.6 K/uL (0.0-0.1); BANDED NEUTROPHILS % 26 %; LYMPHOCYTE # 1.6 K/uL (0.8-4.0); LYMPHOCYTE % 16 %; MONOCYTE # 0.5 K/uL (0.0-1.0); SEGMENTED NEUTROPHIL # 5.2 K/uL (1.8-7.8); SEGMENTED NEUTROPHIL % 52 %
[2016-08-05 11:05] LABS: HEMOGLOBIN 7.8 g/dL (10.0-15.0)
--- NOTE | 2016-08-05 13:07 | NUR ---
I did talk with daughter again today and it is looking like pt will need skilled. I mentioned [facility] is aware or and her md is there and that could be a possiblity. She mentioned [facility] because her father was there and she knows the nursing staff. I explained we can look at that as well but she will need to get a different provider to follow her. She said for now to look at the [facility] and she will see because that would be a little more difficult with her history. I did call and spoke with Mayelin and she is familiar with pt and her mental health as well. Will continue to follow and assist.
--- NOTE | 2016-08-05 16:18 | NUR ---
Significant Event: pt went for PICC line today. NG still to low cont with dark brn drng. FAY to abd intact 30ml out. DENTAL OFFICER dcd. 02 2liters. Merrill has good UOP. All meds got late as pt was off floor for PICC. K 3.4 IV being given and another dose 6hrs after. Lasix to be after albumin 500ml. Lab at [address] Maddox. Pt stood and pivot to chair today 2 max and stood for therapy. PT daughter went back to [place] to call if any problems. Follow up:
[2016-08-05 20:24] LABS: ALBUMIN 2.8 gm/dL (3.5-5.0); CALCIUM 8.6 mg/dL (8.5-10.5); CREATININE 2.7 mg/dL (0.5-1.1); PHOSPHORUS 2.2 mg/dL (2.5-4.9); POTASSIUM 3.4 mMol/L (3.7-5.1)
[2016-08-05 20:27] LABS: ANION GAP 10.4 (10.0-19.0)
[2016-08-05 20:28] LABS: MAGNESIUM 2.8 mg/dL (1.8-2.6)
[2016-08-06 03:57] LABS: ALBUMIN 2.6 gm/dL (3.5-5.0); CALCIUM 8.5 mg/dL (8.5-10.5); CREATININE 2.3 mg/dL (0.5-1.1); POTASSIUM 3.8 mMol/L (3.7-5.1); TOTAL PROTEIN 5.8 g/dL (6.0-8.4)
[2016-08-06 03:58] LABS: ANION GAP 9.8 (10.0-19.0); TOTAL BILIRUBIN 0.6 mg/dL (0.0-1.5)
[2016-08-06 04:04] LABS: HEMATOCRIT 20.9 % (33.0-46.0); MCH 30.5 pg (27.0-34.0); MCV 89.7 fl (83.0-98.0); MPV 11.4 fl (9.4-12.4); PLATELET COUNT 166 K/uL (150-450); RBC 2.33 M/uL (3.50-5.50); RDW-CV 14.2 % (11.9-14.6); WBC 10.4 K/uL (4.0-11.0)
[2016-08-06 04:16] LABS: HEMOGLOBIN 7.1 g/dL (10.0-15.0)
--- NOTE | 2016-08-06 04:25 | NUR ---
Pt intermittently confused during the night. her mentation is clearing up this am. Remembered me from the other night and was making coherent questions/statements. Pt's NA this am 156. con't on d5W at 200. Multiple IVAbx. Zosyn stopped and switched to meropenum d/t NA content in Zosyn. con't on flagyl iv. Recieved 2 40meq KCL jumps. K is 3.8 this am. had 3100 out in lino. ng with minimal/unmeasurable output. FAY with 10ml out. No bs but is burping. Has not passed gas yet. Ice chips ok. Doesn't have any pain meds ordered but has not asked for any either. q2 turn. VSS on 1L, afebrile. heavy 2pa/lift. Plan: needs to be up in chair TID. Pt/Ot to work with her.
[2016-08-06 04:45] LABS: ABSOLUTE NEUTROPHIL CT (ANC) 8.5 K/uL (1.8-7.8); BANDED NEUTROPHIL # 2.4 K/uL (0.0-0.1); BANDED NEUTROPHILS % 23 %; LYMPHOCYTE # 1.4 K/uL (0.8-4.0); LYMPHOCYTE % 13 %; MONOCYTE # 0.1 K/uL (0.0-1.0); SEGMENTED NEUTROPHIL # 6.1 K/uL (1.8-7.8); SEGMENTED NEUTROPHIL % 59 %
--- NOTE | 2016-08-06 11:02 | NUR ---
A-SCREENED D/T LOS S/P SMALL BOWEL RESECTION W/INFECTED MESH REMOVAL, APPENDECTOMY 08/05 PICC PLACED. NG TO LCS; NO MEASURABLE OUTPUT THIS AM. NO BS, NO FLATUS HT: 62 IN. WT: 68.7 KG. BMI: 27.8 LABS: NA 156, K+ 3.8, GLU 118, BUN 72, TREE SPECIALIST 2.3, ALB 2.6, CRP >37.50, PREALB 8.0 MEDS: DILAUDID, MERREM, FLAGYL, PROTONIX, ZOFRAN, D5 DIET RX: NPO STARTING DAY #4. OK FOR ICE CHIPS EST NUTR NEEDS: [id number] KCALS (25-30 KCALS/KG) 69-89 GM PROTEIN (1.0-1.3 GM/KG) 1 ML FLUID/KCAL D-AT NUTRITION RISK W/INADEQUATE ORAL INTAKE R/T ALTERED GI FXN AEB NPO STATUS, NG, S/P SMALL BOWEL RESECTION. I-1)IF DIET RX CANNOT BE ADVANCED WITHIN 1-3 DAYS, RECOMMEND 70 ML/HR TPN WITH 250 ML 20% LIPIDS MWF. THIS WILL PROVIDE AVG OF 1928 KCALS AND 71 GM PROTEIN. M/E-GOAL: ADVANCE DIET RX WHEN MEDICALLY INDICATED 1)F/U GI, DIET RX, AND POC IN 2-3 DAYS 2)ASSIST NEEDED
[2016-08-06 14:59] LABS: ALBUMIN 2.6 gm/dL (3.5-5.0); CALCIUM 8.1 mg/dL (8.5-10.5); MAGNESIUM 2.1 mg/dL (1.8-2.6); POTASSIUM 3.8 mMol/L (3.7-5.1)
[2016-08-06 15:05] LABS: ANION GAP 9.8 (10.0-19.0)
--- NOTE | 2016-08-06 16:44 | NUR ---
Significant Event: A/O x3, cooperative with cares. VSS, SBPs 120-140s, HRs 90-110s, oxygen at 1 liters. C/O pain to L) groin consistentlyl rating 6-7/10; IV tylenol given with minimal relief. Dressing to midline abd incision et FAY drain removed today; Midline abd incision, edges approximated, brigitte intact. FAY sutured in place with 10 ml out this shift. Mrerill patent et draining yellow urine, 1450 out this shift. Inc of BM x2 this shift. Heavy assist of 2 with moving; physical therapy working with patient. Up to [facility] et chair; retrurned to bed by aide et nurse. Reposition every 2 hours while in bed. 30 mmol of potassium phospahate given today. Follow up:
[2016-08-07 03:45] LABS: ALBUMIN 2.4 gm/dL (3.5-5.0); ANION GAP 10.9 (10.0-19.0); CALCIUM 8.6 mg/dL (8.5-10.5); CREATININE 1.6 mg/dL (0.5-1.1); POTASSIUM 3.9 mMol/L (3.7-5.1)
[2016-08-07 03:47] LABS: HEMATOCRIT 23.5 % (33.0-46.0); MCH 30.3 pg (27.0-34.0); MCHC 33.6 gm/dL (32.0-36.5); MPV 11.8 fl (9.4-12.4); PLATELET COUNT 182 K/uL (150-450); RBC 2.61 M/uL (3.50-5.50); RDW-CV 14.3 % (11.9-14.6)
[2016-08-07 03:52] LABS: HEMOGLOBIN 7.9 g/dL (10.0-15.0); WBC 16.1 K/uL (4.0-11.0)
[2016-08-07 04:19] LABS: ABSOLUTE NEUTROPHIL CT (ANC) 13.2 K/uL (1.8-7.8); BANDED NEUTROPHIL # 1.9 K/uL (0.0-0.1); BANDED NEUTROPHILS % 12 %; LYMPHOCYTE # 2.4 K/uL (0.8-4.0); LYMPHOCYTE % 15 %; MONOCYTE # 0.2 K/uL (0.0-1.0); SEGMENTED NEUTROPHIL # 11.3 K/uL (1.8-7.8); SEGMENTED NEUTROPHIL % 70 %
--- NOTE | 2016-08-07 05:21 | NUR ---
Pt a/o. tachy all noc 110-120's occasionally. low grade temp all noc 99.3 even post apap IV. con't on iv abx. d5w at 100ml. Picc in JOHN. BM x1 soft/mushy. Gi bleedy. RA. NGT still out- demands ice chips like crazy. only gave 1 cup q2-3 hrs. refuses turns. c/o pain in left groin off and on all noc. did not sleep.
[2016-08-07 18:02] LABS: CALCIUM 8.4 mg/dL (8.5-10.5); CREATININE 1.4 mg/dL (0.5-1.1); POTASSIUM 3.9 mMol/L (3.7-5.1)
[2016-08-07 18:04] LABS: ANION GAP 10.9 (10.0-19.0)
--- NOTE | 2016-08-07 18:16 | NUR ---
Significant Event: A/O x3, coopertive with cares. VSS, SBPs 110-140s, HRs 100-130s; increases to 120-130s with activity, remains on room air. Recieved an extra dose of IV lopressor for heart rates. Garfield dc'd at 1115; have voided x1 since. Up with 1-2 assist et walker; needs much encouragement et verbal cues on what to do. FAY drain with 7.5 ml out this shift. Follow up:
[2016-08-08 03:16] LABS: ALBUMIN 2.2 gm/dL (3.5-5.0); CALCIUM 8.5 mg/dL (8.5-10.5); CREATININE 1.4 mg/dL (0.5-1.1); MAGNESIUM 1.8 mg/dL (1.8-2.6); PHOSPHORUS 2.1 mg/dL (2.5-4.9); POTASSIUM 3.5 mMol/L (3.7-5.1)
[2016-08-08 03:17] LABS: ANION GAP 10.5 (10.0-19.0)
[2016-08-08 04:17] LABS: BILIRUBIN URINE NEGATIVE (NEGATIVE); BLOOD URINE 150 /UL (NEGATIVE); COLOR URINE YELLOW (YELLOW); GLUCOSE URINE NEGATIVE (NEGATIVE); KETONE URINE NEGATIVE (NEGATIVE); LEUKOCYTES URINE NEGATIVE /UL (NEGATIVE); NITRITE URINE NEGATIVE (NEGATIVE); PH URINE 6.5 (4.0-8.0); PROTEIN URINE 30 mg/dL (NEGATIVE); SPEC GRAVITY URINE 1.005 (1.003-1.035); TURBIDITY URINE 1+ (CLEAR); UROBILINOGEN URINE NORMAL (NORMAL)
--- NOTE | 2016-08-08 04:23 | NUR ---
Pt up x1 assist/fww/bsc. Remains tachy with HR 100-130's when getting up. All other vs wnl on RA. con't on D5W at 200 ml/hr. Remains on ice chips only with 1 cup of water with miralax. Have been giving her 1 cup of ice q2 hours aide. bm x1-semi formed. bowel sounds remain rare and hypoactive. abd is slightly less distended this am. Still rounded and firm though. brigitte intact. FAY with no output. plan: Con't current plan of care.
[2016-08-08 04:38] LABS: WBC URINE 0-2 #/HPF (NEGATIVE)
[2016-08-08 04:39] LABS: BACTERIA URINE NEGATIVE (NEGATIVE)
[2016-08-08 04:46] LABS: HEMATOCRIT 23.9 % (33.0-46.0); MCH 30.4 pg (27.0-34.0); MCHC 33.1 gm/dL (32.0-36.5); MCV 91.9 fl (83.0-98.0); MPV 12.3 fl (9.4-12.4); PLATELET COUNT 198 K/uL (150-450)
[2016-08-08 04:54] LABS: HEMOGLOBIN 7.9 g/dL (10.0-15.0); WBC 25.6 K/uL (4.0-11.0)
[2016-08-08 05:56] LABS: ABSOLUTE NEUTROPHIL CT (ANC) 24.6 K/uL (1.8-7.8); BANDED NEUTROPHILS % 4 %; LYMPHOCYTE # 0.5 K/uL (0.8-4.0); LYMPHOCYTE % 2 %; MONOCYTE # 0.5 K/uL (0.0-1.0); SEGMENTED NEUTROPHIL # 23.6 K/uL (1.8-7.8); SEGMENTED NEUTROPHIL % 92 %
--- NOTE | 2016-08-08 14:12 | NUR ---
A-NUTRITION F/U S/P SMALL BOWEL RESECTION F/INFECTED MESH REMOVAL AND APPENDECTOMY NO NAUSEA. (+)BM/(+)BS. NG OUT. ON ROOM AIR LABS: NA 148, K+ 3.5, GLU 129, BUN 45, YARDER PUNCHER 1.4, ALB 2.2 DIET RX: NPO (STARTING DAY #6). IS GETTING ICE CHIPS FROM NURSING EST NUTR NEEDS: 2656-4459 KCALS AND 69-89 GM PROTEIN D-AT NUTRITION RISK W/INADEQUATE ORAL INTAKE R/T ALTERED GI FXN AEB NPO STATUS, S/P GI SURGERY. I-IF ORAL DIET CANNOT BE STARTED WITHIN 24 HOURS, RECOMMEND 70 ML/HR TPN W/250 ML 20% LIPIDS MWF. THIS WILL PROVIDE AN AVG OF 1928 KCALS AND 71 GM PROTEIN M/E-GOAL: INITIATE APPROPRIATE FORM OF NUTRITION IN THE NEXT 24 HOURS 1)F/U DIET RX, GI, AND POC IN 2-3 DAYS 2)ASSIST NEEDED
--- NOTE | 2016-08-08 18:38 | NUR ---
PATIENT UP TO COMMODE AND CHAIR W/ 1-2 ASSIST AND WALKER. PATIENT HAD CT OF ABDOMEN THIS AFTERNOON, WBC INCREASING. ICE CHIPS ALLOWED. LOOSE STOOLS X3. VSS, SATS MID 90'S ON RA. AFEBRILE. POSITIONING FOR LEG/HIP DISCOMFORT. WORKED WITH PT/OT.
--- NOTE | 2016-08-09 00:12 | NUR ---
Pt left via air transport to [facility] in [place]. Report given to Stephanie in the [facility] ICU. Bedside report given to Mirela of air transport. Pt left with cell phone. All other belongings stored here until daughter can pick them up tomorrow. Merrill was placed prior to transport. JOHN PICC with D5W running at 200 ml/hr.
== END 2016-08-08 23:55 | disposition hospice, home (50) | DRG 329 ==
LOC: GMED 18:44 → GPCU 20:52
PROVIDERS: Emergency Medicine; Internal Medicine; Surgery; ADMIT Family Medicine
PROC: 0WPF0YZ Removal of Other Device from Abdominal Wall, Open Approach (ICD-10-PCS; principal; 2016-08-03)
PROC: 0DB80ZZ Excision of Small Intestine, Open Approach (ICD-10-PCS; principal; 2016-08-03)
PROC: 0DTJ0ZZ Resection of Appendix, Open Approach (ICD-10-PCS; principal; 2016-08-03)
DX: K56.69 Other intestinal obstruction (principal); K63.1 Perforation of intestine (nontraumatic); R65.11 Systemic inflammatory response syndrome (SIRS) of non-infectious origin with acute organ dysfunction; M72.6 Necrotizing fasciitis; G93.40 Encephalopathy, unspecified; N17.9 Acute kidney failure, unspecified; M60.052 Infective myositis, left thigh; N18.3 Chronic kidney disease, stage 3 (moderate); F31.30 Bipolar disorder, current episode depressed, mild or moderate severity, unspecified; E87.0 Hyperosmolality and hypernatremia; D50.9 Iron deficiency anemia, unspecified; B96.89 Other specified bacterial agents as the cause of diseases classified elsewhere
CPT/HCPCS: C1751; C9113; J0131; J1100; J1170; J1644; J1650; J1940; J2185; J2250; J2405; J2543; J3480; J7030; J7050; J7060; P9045; P9047; Q9967

== ENCOUNTER → 2016-08-02 | Outpatient (CLI) | payer MEDICARE ==
[~2016-08-02] MED LIST: ATIVAN 0.5MG0.5 MG PO; FERGON325 M1 PO; MULTI VITAMIN1 EACH PO; PAMELOR75 MG PO; SENNA-DOCUSATE1 EACH PO; TOPROL XL25 MG PO; TYLENOL325 MG PO; VITAMIN B-122500 MCG SL
== END | disposition disaster alternative care site (69) ==
LOC: GAIR 18:20
DX: N17.9 Acute kidney failure, unspecified (principal); F32.9 Major depressive disorder, single episode, unspecified; F41.9 Anxiety disorder, unspecified; E07.9 Disorder of thyroid, unspecified; K56.60 Unspecified intestinal obstruction; I95.9 Hypotension, unspecified; R10.2 Pelvic and perineal pain; R10.30 Lower abdominal pain, unspecified; Z96.0 Presence of urogenital implants
CPT/HCPCS: A0431; A0436; J2405; J3010

== ENCOUNTER → 2016-08-08 | Outpatient (CLI) | payer MEDICARE | END | disposition disaster alternative care site (69) | LOC: GAIR 23:45 | DX: R10.9 Unspecified abdominal pain (principal); N18.3 Chronic kidney disease, stage 3 (moderate); L08.9 Local infection of the skin and subcutaneous tissue, unspecified; M79.652 Pain in left thigh; K40.90 Unilateral inguinal hernia, without obstruction or gangrene, not specified as recurrent; N17.9 Acute kidney failure, unspecified; R14.0 Abdominal distension (gaseous); Z79.899 Other long term (current) drug therapy | CPT/HCPCS: A0422; A0431; A0436 ==